=== PATIENT | female | born 1990 | race Caucasian/White ===

== ENCOUNTER → 2016-08-03 | Outpatient (CLI) | payer BC ==
[~2016-08-03] MED LIST: ADDERALL 20 MG PO; HARD NAILS2500 MCG PO; LEVOTHYROXINE100 MCG PO; PROBIOTIC1 EAC3 PO
--- NOTE | ~2016-08-03 | EKG ---
PATIENT: SAURABH RODRIGUEZ UNIT #: [id number] Ventricular Rate: 67 BPM Atrial Rate: 67 BPM P-R Interval: 120 ms QRS Duration: 88 ms Q-T Interval: 394 ms QTC Calculation(Bezet): 416 ms P [place]: 28 degrees Calculated R [place]: 43 degrees Calculated T [place]: 38 degrees Diagnosis Line: Normal sinus rhythm with sinus arrhythmia Diagnosis Line: Normal ECG Diagnosis Line: No previous ECGs available Diagnosis Line: Confirmed by AMBREEN CA MD ([id number]) on 08/03/2016 Diagnosis Line: 11:02:37 PM INTERPRETING MD: LANNY GRAY
[2016-08-03 12:36] LABS: CALCIUM SERUM 9.7 mg/dL (8.4-10.2); CREATININE SERUM 0.6 mg/dL (0.6-1.4); GLOM FILT RATE Estimated 128.5 mL/min (>60); POTASSIUM 4.6 mmol/L (3.5-5.1)
== END | disposition home or self-care (01) ==
LOC: CAMB 10:58
PROVIDERS: Surgery
DX: Z01.818 Encounter for other preprocedural examination (principal)
CPT/HCPCS: 36415; 80048; 84703; 93005

== ENCOUNTER → 2016-08-06 | Day surgery (SDC) | payer BC ==
--- NOTE | ~2016-08-06 | OR ---
Unit #: [id number] #: [id number] Patient: SAURABH RODRIGUEZ [id number] [address] [place], [place] [address] [id number] O MR#: [id number] NAME: SAURABH RODRIGUEZ ROOM: Date of Procedure: 08/06/2016 Admission Date: 08/06/2016 Surgeon: Deep Quesada M.D. : 1990 Attending Physician: Deep Quesada M.D. OPERATIVE REPORT PREOPERATIVE DIAGNOSIS Chronically inflamed sebaceous cyst, left groin. POSTOPERATIVE DIAGNOSIS Chronically inflamed sebaceous cyst, left groin. PROCEDURE PERFORMED Excision of chronically inflamed sebaceous cyst, left groin 3 cm with layered closure. ANESTHESIA General LMA anesthesia with 0.5% Marcaine plain local anesthesia. FINDINGS The area was excised and closed with a layered closure. SPECIMENS Sent to pathology. COMPLICATIONS None apparent. CONDITION The patient tolerated the procedure well. INDICATIONS FOR PROCEDURE The patient is a 25-year-old white female, who has a chronically inflamed sebaceous cyst of the left groin that has become inflamed and needed incision and drainage several times. She presents at this time for excision for pathologic diagnosis and treatment. DESCRIPTION OF PROCEDURE After obtaining informed consent as well as receiving preoperative antibiotics, the patient was brought to the operating room and after adequate general LMA anesthesia was obtained, had the area prepped and draped in a sterile fashion. The area was elliptically excised circumferentially with a knife and it was taken down through the skin and the subdermal tissues with a knife. Electrocautery was used to excise the area circumferentially. There was some additional inflamed tissue proximally and so the incision required extension. The area was excised circumferentially back to normal healthy viable tissue. The specimen was sent to pathology. The wound was irrigated. Hemostasis was obtained with Unit #: [id number] #: [id number] Patient: SAURABH RODRIGUEZ the [place]ov[place], infiltrated with 0.5% Marcaine plain local anesthesia. The deep tissues were reapproximated with interrupted 3-0 Vicryl suture. The skin was closed with interrupted vertical mattress 4-0 nylon sutures. A dry dressing was applied followed by a Tegaderm dressing. Needle counts, sponge counts, and instrument counts were all correct as reported by the scrub nurse x2. The patient went from the operative room to the recovery room in stable condition. Dictated by... Nona Jain/anya TD: 08/06/2016 23:08 JOB #: [id number] CC: [facility] [place] [facility] OPERATIVE REPORT Page 1 of 1 X Deep Quesada MD X PROCEDURE OPERATIVE NOTE
== END | disposition home or self-care (01) ==
LOC: CSUR 05:56
DX: L72.3 Sebaceous cyst (principal); L85.9 Epidermal thickening, unspecified; E03.9 Hypothyroidism, unspecified; Z88.2 Allergy status to sulfonamides; Z79.899 Other long term (current) drug therapy; Z90.49 Acquired absence of other specified parts of digestive tract; Z98.890 Other specified postprocedural states
CPT/HCPCS: 88304; 88312; J0690; J2250; J3010